=== PATIENT | male | born 1985 | race African-American/Black ===

== ENCOUNTER 2021-05-27 06:01 | Emergency (ER) | payer BC ==
[~2021-05-27] VITALS: Ht 185.4 cm; Wt 117.9 kg
[2021-05-27] MEDS ORDERED: NEURONTIN300 MG PO (07:41)
[2021-05-27] MEDS ORDERED: MOTRIN200 MG PO (07:41)
[2021-05-27] MEDS ORDERED: VICODIN HP 10-1 EAC1 PO (07:41)
== END 2021-05-27 08:40 | disposition home or self-care (01) ==
LOC: FSED 06:55
DX: M54.5 Low back pain (principal); M54.6 Pain in thoracic spine; G89.29 Other chronic pain; G82.20 Paraplegia, unspecified
CPT/HCPCS: 72128; 72131; 99283